=== PATIENT | male | born 1985 | race Two or more races ===

== ENCOUNTER 2021-07-03 14:19 | Outpatient (CLI) | payer OTHER | END 2021-07-03 15:50 | disposition home or self-care (01) | LOC: LAB 14:19 | PROVIDERS: ATTEND Emergency Medicine Pediatric Emergency Medicine | DX: Z03.818 Encounter for observation for suspected exposure to other biological agents ruled out (principal) ==

== ENCOUNTER 2021-07-17 13:59 | Outpatient (CLI) | payer OTHER | END 2021-07-17 15:00 | disposition home or self-care (01) | LOC: LAB 13:59 | PROVIDERS: ATTEND Emergency Medicine Pediatric Emergency Medicine | DX: Z03.818 Encounter for observation for suspected exposure to other biological agents ruled out (principal) ==

== ENCOUNTER 2021-07-24 12:31 | Outpatient (CLI) | payer OTHER | END 2021-07-24 12:35 | disposition home or self-care (01) | LOC: LAB 12:31 | PROVIDERS: ATTEND Emergency Medicine Pediatric Emergency Medicine | DX: Z03.818 Encounter for observation for suspected exposure to other biological agents ruled out (principal) ==